=== PATIENT | female | born 1990 | race Caucasian/White ===

== ENCOUNTER 2020-08-08 13:21 | Emergency (ER) | payer OTHER ==
[~2020-08-08] VITALS: Ht 162.6 cm; Wt 118.3 kg
[2020-08-08] MEDS ORDERED: CLINDAMYCIN 150MG CAPSULE PO ONE (15:15)
[2020-08-08] MEDS ORDERED: LIDOCAINE W/EPINEPHRINE 1% 20ML VIAL SC ONE (15:15)
[2020-08-08] MEDS ORDERED: CLEO150C PO (16:21)
[2020-08-08 16:35] VITALS: BP 135/79
== END 2020-08-08 16:38 | disposition home or self-care (01) ==
LOC: M ED 13:21
DX: S91.011A Laceration without foreign body, right ankle, initial encounter (principal); V49.40XA Driver injured in collision with unspecified motor vehicles in traffic accident, initial encounter; Y92.9 Unspecified place or not applicable; Y93.9 Activity, unspecified; Y99.9 Unspecified external cause status; F17.200 Nicotine dependence, unspecified, uncomplicated